=== PATIENT | female | born 1965 | race Caucasian/White ===

== ENCOUNTER 2019-01-18 05:42 | Inpatient (IN) | payer BC, OTHER ==
[2019-01-10 12:49] LABS: HEMATOCRIT 37.4 % (37.0-47.0); HEMOGLOBIN 12.4 gm/dL (12.0-15.0); MCH 27.5 pg (26.0-34.0); MCHC 33.2 g/dL (28.0-37.0); MCV 82.7 fL (80.0-100.0); RBC 4.52 mil/uL (4.20-5.00); RDW 13.2 % (10.5-14.5); WBC 5.7 thou/uL (4.0-11.0)
[2019-01-10 12:59] LABS: ALBUMIN 4.1 g/dL (3.4-5.0); CALCIUM 9.6 mg/dL (8.5-10.1); CREATININE 0.7 mg/dL (0.6-1.0)
[2019-01-10 13:02] LABS: PROTIME 10.1 Seconds (9.3-11.4)
[2019-01-10 13:16] LABS: URINE BILIRUBIN NEGATIVE (Negative); URINE BLOOD NEGATIVE (Negative); URINE CLARITY CLEAR; URINE COLOR YELLOW; URINE GLUCOSE-RANDOM* 3+ (Negative); URINE KETONES NEGATIVE (Negative); URINE LEUKOCYTES-REFLEX TRACE (Negative); URINE NITRITE-REFLEX NEGATIVE (Negative); URINE PROTEIN (DIPSTICK) NEGATIVE (Negative); URINE UROBILINOGEN 0.2 E.U./dl (0.2-1.0)
--- NOTE | 2019-01-11 09:04 | EKG ---
[address] [address] ELECTROCARDIOGRAM REPORT Name: CHRIS BAZAN Room #: PRE IN [facility]#: [id number] ������������������ Admission: ������������������ Attend Phys: Chaim Braun MD Discharge: ������������������ Date of : [birth year] Report #: [id number] ����������������������������������������������������������������� [id number] THIS REPORT FOR: //name// [facility] Test Date: 2019-01-10 Test Time: 12:51:39 Pat Name: CHRIS BAZAN Department: Room: Gender: F Watch Supervisor: sherron : 1965 Requested By: Chaim Braun Order Number: [id number] MD: Sagar Morales Measurements Intervals [place] Rate: 72 P: 46 [place]: 163 QRS: 6 QRSD: 106 T: 26 QT: 436 QTc: 478 Interpretive Statements Sinus rhythm Normal tracing No previous ECG available for comparison Electronically Signed On 01-11-2019 9:04:31 CDT by Sagar Morales [email or web address] ��������������������������������������������� <ELECTRONICALLY SIGNED> ���������������������������������������� By: Sagar Morales MD, [facility] ��������������������������������������������� 01/11/19 0904 1251 1251 Sagar Morales MD, FACC /EPI
[~2019-01-18] VITALS: Ht 172.7 cm; Wt 104.3 kg
[2019-01-18] VITALS (8 sets, daily range): BP systolic 130–150; BP diastolic 57–76
[~2019-01-18 05:42] MED LIST: ALEVE220 MG PO; INVOKANA100 MG PO; LIPITOR10 MG PO; OXYBUTYNIN 5 MG5 M2 PO; SOLIQUA 100 UNIT3 ML SUBQ
[2019-01-19 00:11] VITALS: BP 107/64
[2019-01-19 05:16] LABS: HEMATOCRIT 33.1 % (37.0-47.0); MCH 27.6 pg (26.0-34.0); MCHC 33.2 g/dL (28.0-37.0); MCV 83.1 fL (80.0-100.0); RBC 3.98 mil/uL (4.20-5.00); RDW 13.1 % (10.5-14.5); WBC 9.2 thou/uL (4.0-11.0)
[2019-01-19 05:17] VITALS: BP 117/56
[2019-01-19 05:20] LABS: CREATININE 0.6 mg/dL (0.6-1.0)
--- NOTE | 2019-01-19 06:16 | O ---
[facility] [place] [place] [address] OPERATIVE REPORT Name: CHRIS BAZAN Room #: 453-P ADM IN M.R.#: [id number] Admission: 01/18/19 ������������������ Attend Phys: Chaim Braun MD Discharge: ������������������ Date of : 69 Report #: [id number] THIS REPORT FOR: //name// CC: Surinder Lee Chaim Braun DATE OF SERVICE: 01/18/2019 SERVICE: Orthopedics. FACILITY: [facility]. SURGEON: Chaim Braun MD UNIT SECY: Rizwana Tomlinson NP INDICATIONS FOR UNIT SECY: Retraction, assistance with the exposure, total knee implantation and closure. COMPLICATIONS: None. DRAINS: None. SPECIMENS: None. ESTIMATED BLOOD LOSS: 75 mL. FINDINGS: 1. Increased level of difficulty secondary to history of previous open reduction and internal fixation of patella and hardware removal with a total of 3 prior knee surgeries and subsequent patellar malunion. 2. [employer] Oxinium Journey II size 7 tibia with size 7 femur, 5 tibia, 32 mm patellar button and 11 mm polyethylene insert. PREOPERATIVE DIAGNOSES: 1. Left knee osteoarthritis. 2. Status post left knee trauma with open reduction and internal fixation left patellar fracture and subsequent hardware removal. 3. Knee flexion contracture and scarring, left knee. PROCEDURE: 1. Left total knee arthroplasty. 2. Computer navigated robotic assistance. HISTORY: The patient is a 53-year-old female with a history of left knee arthritis that was secondary to osteoarthritis as well as post-traumatic [facility] [place] [address] OPERATIVE REPORT Name: CHRIS BAZAN Room #: 453-P [facility] IN M.R.#: [id number] Admission: 01/18/19 ������������������ Attend Phys: Chaim Braun MD Discharge: ������������������ Date of : 69 Report #: [id number] component. She had a previous ORIF patella fracture and had a malunion as well as chondromalacia that went on to advanced osteoarthritis. She had hardware removal and had flexion contracture resulting from this trauma and previous surgery. She has extensive conservative measures including rest, activity modification, physical therapy, injections, hardware removal, arthroscopy, oral medications and injections, all without sufficient relief. She eventually likes to undergo surgical treatment. Risks, benefits, alternatives and indications of surgery were discussed with her in detail. Risks include, but not limited to pain, bleeding, infection, injury to nerves or blood vessels, persistent pain despite surgical intervention, failure of the implant, need for further surgery including revisions, stiffness as well as complications related to anesthesia such as stroke, heart attack, pulmonary complications, thromboembolic disease and . Despite these risks, she wished to proceed. PROCEDURE IN DETAIL: After the left lower extremity was correctly identified in the preoperative holding as operative extremity, the patient underwent placement of a single shot regional nerve block by Anesthesia. She was then taken to the operating room where general anesthesia was induced without complications. She was padded appropriately. Prophylactic antibiotics were administered at appropriate time. Tourniquet was applied to the left leg. Left lower extremity was then prepped and draped in standard sterile fashion. Timeout procedure performed. Anterior approach was made. There was a significant amount of scarring in the anterior aspect of the knee and so additional work needed to be done to free up the scarring and then access the anterior knee. Medial parapatellar arthrotomy was performed. The osteophytes were removed. The knee was exposed. Menisci were removed and the cruciate ligaments were removed and then the Parachute system was used to assess the tibia, femur, and map it out for computer navigation. Robotic assistance was used to make the initial cuts and then the bone blocks were used through the typical fashion for the [employer] system. I used size 7 femur and then after templating was completed and the bone cuts were finalized, the tibia was cut as well and then the block was used estimating a 11 mm implant, which helped address her knee flexion contracture, which was rather significant. I spent some additional time removing old fragments from the patellar fracture as well as patellar osteophytes and then addressing the scarring around the patellar tendon and the quadriceps tendon. The trials were then placed and the knee was assessed. It was found to be well balanced in flexion and extension and had good range of motion. The wound was copiously irrigated. Final implants were then cemented into position with the trial polyethylene. Tourniquet was let down. The periarticular injection cocktail was completed with the injection and note that the posterior capsule had been injected prior to placement of the implant. Tourniquet was let down. Hemostasis was achieved and then the knee was again tested for balancing. I was happy with the 11 mm poly trials, we selected that as a final implant, placed that in and then I irrigated the knee once more, took it through a final range of motion and then closed the arthrotomy over 1 gram of vancomycin powder and then the skin was closed with 2-0 Vicryl followed by running subcuticular 3-0 [facility] [address] [place] [address] OPERATIVE REPORT Name: CHRIS BAZAN Room #: 453-P [facility] IN M.R.#: [id number] Admission: 01/18/19 ������������������ Attend Phys: Chaim Braun MD Discharge: ������������������ Date of : 69 Report #: [id number] Monocryl. Due to the significant amount of scarring in the anterior knee, we did have a minor skin tear which was repaired on the medial aspect of the incision with Monocryl as well. Sterile dressing was applied followed by compression stocking. The patient was awakened from anesthesia and taken to recovery room in stable condition. No complications. All counts were recorded as correct. ��������������������������������������������� <ELECTRONICALLY SIGNED> ���������������������������������������� By: Chaim Braun MD ��������������������������������������������� 01/19/19 0616 1344 [id number] Chaim Braun MD /nt
[2019-01-19 07:23] VITALS: BP 136/67
[2019-01-19 10:08] VITALS: BP 136/67
[2019-01-19] MEDS ORDERED: XARELTO10 MG PO (10:54)
[2019-01-19] MEDS ORDERED: MIRALAX17 GM PO (10:54)
[2019-01-19] MEDS ORDERED: SENNA8.6 MG PO (10:54)
[2019-01-19] MEDS ORDERED: ZANAFLEX4 MG PO (10:54)
[2019-01-19 14:47] VITALS: BP 122/63
[2019-01-19 19:38] VITALS: BP 150/67
[2019-01-20 04:41] VITALS: BP 140/71
[2019-01-20 05:47] LABS: HEMATOCRIT 30.2 % (37.0-47.0); MCH 27.3 pg (26.0-34.0); MCHC 32.9 g/dL (28.0-37.0); RBC 3.64 mil/uL (4.20-5.00); RDW 13.4 % (10.5-14.5); WBC 8.5 thou/uL (4.0-11.0)
[2019-01-20 08:26] VITALS: BP 110/59
[2019-01-20 11:07] VITALS: BP 110/59
== END 2019-01-20 12:19 | disposition home or self-care (01) | DRG 470 ==
LOC: 4W 05:42 → TBA 05:42 → PRE 05:42 → TBA 15:03 → 4W 15:03 → ENTRNSPT 01-20 11:44 → EDTRNSPTSTS 01-20 11:45 → 4W 01-20 12:19
PROVIDERS: ADMIT Orthopaedic Surgery Sports Medicine
PROC: 0SRD0J9 Replacement of Left Knee Joint with Synthetic Substitute, Cemented, Open Approach (ICD-10-PCS; principal; 2019-01-18)
PROC: 8E0Y0CZ Robotic Assisted Procedure of Lower Extremity, Open Approach (ICD-10-PCS; principal; 2019-01-18)
DX: M17.32 Unilateral post-traumatic osteoarthritis, left knee (principal); M24.562 Contracture, left knee; G89.29 Other chronic pain; M54.2 Cervicalgia; M54.9 Dorsalgia, unspecified; E78.5 Hyperlipidemia, unspecified; E11.9 Type 2 diabetes mellitus without complications; Z90.710 Acquired absence of both cervix and uterus; Z90.49 Acquired absence of other specified parts of digestive tract
CPT/HCPCS: 10047; 50010; 50101; 50415; 50954; 51130; 51225; 51320; 52001; 52282; 53000; 53078; 54118; 55372; 56527; 56528; 57095; 57103; 57110; 57127; 57178; 62110; 62900; 64043; 65060; 70005